=== PATIENT | female | born 1970 | race Caucasian/White ===

== ENCOUNTER → 2024-01-07 09:07 | Outpatient (REF) | payer OTHER, SELFPAY ==
[2024-01-07 10:29] LABS: ALT (SGPT) 24 U/L (0-35); AST (SGOT) 27 U/L (14-36); Albumin 4.8 g/dl (3.5-5.0); Alkaline Phosphatase 82 U/L (38-126); Blood Urea Nitrogen 21 mg/dl (7-17); Calcium 9.6 mg/dl (8.4-10.2); Carbon Dioxide 30 mmol/L (22-30); Chloride 103 mmol/L (98-107); Glucose 85 mg/dl (70-99); HDL Cholesterol 72 mg/dl; LDL Cholesterol, Calculated 122 mg/dl; Potassium 4.7 mmol/L (3.5-5.1); Sodium 140 mmol/L (135-145); Total Cholesterol 203 mg/dl (50-199); Total Protein 7.6 g/dl (6.3-8.2); Triglyceride 46 mg/dl (10-149); Very Low Density Lipoprotein 9 mg/dl (0-30); eGFR > 60.00
[2024-01-07 10:58] LABS: TSH Reflex To Free T4 1.75 uIU/ml (0.47-4.68)
[2024-01-07 12:11] LABS: Glycohemoglobin (HgbA1c) 5.6 % (4.0-5.6)
[2024-01-08 14:07] LABS: Thyroglobulin Antibodies 2.1 IU/mL (0.0-4.0); Thyroid Peroxidase Ab (TPO) 158.4 IU/mL (0.0-9.0)
== END ==
LOC: REG 09:07
PROVIDERS: ATTENDING PHYSICIAN Nurse Practitioner Adult Health
DX: L68.9 Hypertrichosis, unspecified (principal); R07.9 Chest pain, unspecified; E78.2 Mixed hyperlipidemia; E78.3 Hyperchylomicronemia; Z82.49 Family history of ischemic heart disease and other diseases of the circulatory system; R73.01 Impaired fasting glucose
CPT/HCPCS: 36415; 80053; 80061; 83036; 84403; 84443; 86376; 86800

== ENCOUNTER → 2024-02-01 07:38 | Outpatient (REF) | payer SELFPAY | LOC: RAD 07:38 | PROVIDERS: ATTENDING PHYSICIAN Nurse Practitioner Adult Health | DX: R07.9 Chest pain, unspecified (principal); E78.2 Mixed hyperlipidemia; Z83.3 Family history of diabetes mellitus; Z82.49 Family history of ischemic heart disease and other diseases of the circulatory system; R73.01 Impaired fasting glucose | CPT/HCPCS: 75571 ==

== ENCOUNTER → 2024-04-12 07:49 | Outpatient (REF) | payer OTHER, SELFPAY ==
[2024-04-12 09:21] LABS: Cortisol, Random 7.3 ug/dl
== END ==
LOC: REG 07:49
PROVIDERS: ATTENDING PHYSICIAN Nurse Practitioner Adult Health
DX: R79.89 Other specified abnormal findings of blood chemistry (principal)
CPT/HCPCS: 36415; 82533; 84270; 84402; 84403

== ENCOUNTER → 2024-04-27 08:16 | Outpatient (REF) | payer OTHER, SELFPAY | LOC: WDC 08:16 | PROVIDERS: ATTENDING PHYSICIAN Nurse Practitioner Family; FAMILY PHYSICIAN Nurse Practitioner Adult Health | DX: Z12.31 Encounter for screening mammogram for malignant neoplasm of breast (principal) | CPT/HCPCS: 77063; 77067 ==

== ENCOUNTER → 2024-05-10 18:41 | Outpatient (REF) | payer OTHER, SELFPAY | LOC: RAD 18:41 | PROVIDERS: ATTENDING PHYSICIAN Nurse Practitioner Family; FAMILY PHYSICIAN Nurse Practitioner Adult Health | DX: N83.209 Unspecified ovarian cyst, unspecified side (principal) | CPT/HCPCS: 76830; 76856 ==

== ENCOUNTER → 2024-05-11 07:45 | Outpatient (REF) | payer OTHER, SELFPAY ==
[2024-05-11 09:15] LABS: Glucose 85 mg/dl (70-99); HDL Cholesterol 60 mg/dl; LDL Cholesterol, Calculated 115 mg/dl; Total Cholesterol 189 mg/dl (50-199); Triglyceride 70 mg/dl (10-149); Very Low Density Lipoprotein 14 mg/dl (0-30)
[2024-05-11 09:54] LABS: Glycohemoglobin (HgbA1c) 5.2 % (4.0-5.6)
[2024-05-11 11:52] LABS: CA 125 7.3 U/mL (0-35)
[2024-05-12 23:28] LABS: DHEA Sulfate 100 ug/dL (35-256)
== END ==
LOC: REG 07:45
PROVIDERS: ATTENDING PHYSICIAN Radiology Diagnostic Radiology; FAMILY PHYSICIAN Nurse Practitioner Adult Health; REFERRING PHYSICIAN Nurse Practitioner Family
DX: L68.9 Hypertrichosis, unspecified (principal); R79.89 Other specified abnormal findings of blood chemistry
CPT/HCPCS: 36415; 80061; 82627; 82947; 83036; 86304

== ENCOUNTER → 2024-05-20 09:09 | Outpatient (REF) | payer OTHER, SELFPAY | LOC: MRI 3T 09:09 | PROVIDERS: ATTENDING PHYSICIAN Obstetrics & Gynecology; FAMILY PHYSICIAN Nurse Practitioner Adult Health | DX: N83.9 Noninflammatory disorder of ovary, fallopian tube and broad ligament, unspecified (principal) | CPT/HCPCS: 72197; A9575 ==

== ENCOUNTER → 2024-05-23 07:22 | Outpatient (REF) | payer OTHER, SELFPAY ==
[2024-05-23 11:42] LABS: FSH 57.6 mIU/ml; Prolactin 18.7 ng/ml (3.0-18.6)
[2024-05-23 11:55] LABS: CEA 1.25 ng/ml
[2024-05-23 11:57] LABS: Estradiol 40.4 pg/ml
[2024-05-24 19:21] LABS: CA 19-9 3 U/mL (<=35)
== END ==
LOC: REG 07:22
PROVIDERS: ATTENDING PHYSICIAN Radiology Diagnostic Radiology; FAMILY PHYSICIAN Nurse Practitioner Adult Health; OTHER PHYSICIAN Nurse Practitioner Family; REFERRING PHYSICIAN Obstetrics & Gynecology Gynecologic Oncology
DX: R79.89 Other specified abnormal findings of blood chemistry (principal); N83.202 Unspecified ovarian cyst, left side
CPT/HCPCS: 36415; 82378; 82670; 83001; 83002; 84146; 86301

== ENCOUNTER → 2024-05-30 10:19 | Outpatient (REF) | payer OTHER, SELFPAY | LOC: RAD 10:19 | PROVIDERS: ATTENDING PHYSICIAN Obstetrics & Gynecology Gynecologic Oncology; FAMILY PHYSICIAN Nurse Practitioner Adult Health | DX: C56.2 Malignant neoplasm of left ovary (principal); R19.04 Left lower quadrant abdominal swelling, mass and lump; R97.8 Other abnormal tumor markers | CPT/HCPCS: 71260; 74177; Q9967 ==

== ENCOUNTER 2024-06-01 06:29 | Day surgery (SDC) | payer OTHER, SELFPAY ==
[2024-05-29 08:42] VITALS: BMI 33.0
[2024-05-29 09:35] LABS: % Basophils 0.7 % (0-2); % Eosinophils 2.1 % (0-6); % Immature Granulocytes 0.2 % (0-0.5); % Lymphocytes 40.6 % (20.5-51.1); % Monocytes 9.1 % (1.7-9.3); % Neutrophils 47.3 % (42.2-75.2); Absolute Eosinophils 0.1 10^3/uL (0-0.7); Absolute Lymphocytes 1.7 10^3/uL (1.2-3.4); Absolute Monocytes 0.4 10^3/uL (0.1-0.6); Hematocrit 41.1 % (37.0-47.0); Hemoglobin 13.8 g/dL (12.0-16.0); Mean Corp Hgb Conc. 33.6 g/dL (33.0-37.0); Mean Corpuscular Hgb 29.1 pg (27.0-31.0); Mean Corpuscular Volume 86.5 fL (81.0-99.0); Mean Platelet Volume 9.9 fL (7.4-10.4); Nucleated Red Blood Cells % 0 %; Platelet Count 226 10^3/uL (130-400); Red Blood Cell Count 4.75 10^6/uL (4.20-5.40); Red Cell Dist. Width 12.1 % (11.5-14.5); White Blood Cell Count 4.2 10^3/uL (4.8-10.8)
[2024-05-29 09:42] LABS: ALT (SGPT) 23 U/L (0-35); AST (SGOT) 25 U/L (14-36); Albumin 4.4 g/dl (3.5-5.0); Alkaline Phosphatase 64 U/L (38-126); Blood Urea Nitrogen 27 mg/dl (7-17); Carbon Dioxide 25 mmol/L (22-30); Chloride 105 mmol/L (98-107); Estimated Creatinine Clearance 99 ml/min; Glucose 83 mg/dl (70-99); Potassium 4.7 mmol/L (3.5-5.1); Sodium 142 mmol/L (135-145); Total Bilirubin 0.7 mg/dl (0.2-1.3); Total Protein 7.2 g/dl (6.3-8.2); eGFR > 60.00
[2024-06-01] VITALS (10 sets, daily range): BP systolic 99–137; BP diastolic 56–82; BMI 33.0
[2024-06-01] MEDS: NEURONTIN 300 MG PO (12:52)
[2024-06-01] MEDS: HEPARIN 5000 UNITS SC (12:53)
[2024-06-01] MEDS: TYLENOL 1000 MG PO (12:53)
[2024-06-01] MEDS: MOBIC 15 MG PO (13:05)
[2024-06-01] MEDS: DEMEROL 12.5 MG IV (17:08)
[2024-06-01] MEDS: DILAUDID 0.25 MG IV (17:16)
--- NOTE | 2024-06-01 17:22 | OR.RPT ---
Operative Report
Operative Report
Date of procedure: June 01, 2024
preoperative diagnosis: Elevated testosterone level, left ovarian mass, history of cervix dysplasia
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
Anesthesia: General Endotracheal intubation
Procedure:
Robotic assisted total laparoscopic hysterectomy, bilateral salpingo-oophorectomy, pelvic washings, infracolic omentectomy
Tap block
Surgeon: Luke Hamm MD
Assist: GEO Catalan
Estimated blood loss 50 cc
Urine output: 400 cc
Complications: None
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 She had a prior history of cone biopsy for cervical dysplasia. Given her menopausal disease
status decision was made to proceed with removal of uterus cervix bilateral tubes and ovaries. Upon arrival to the operating room she was placed in supine position, general anesthesia was administered, she was intubated without any difficulty, she
was placed in lithotomy position using yellowfin stirrups and her arms were wrapped in foam and protected and later along her sides. She was prepped on the abdomen and perineum and vagina and she was draped. She had timeout procedure and received
appropriate IV antibiotics and DVT prophylaxis including heparin subcutaneous injection. Keller catheter was placed in the bladder for drainage under sterile conditions. Anterior lip of the cervix was grasped with single-tooth tenaculum. The
endocervical canal was dilated gradually up to 23 Hegar dilator. The uterus sounded to 7 cm. Uterine manipulator business education professor type with 3.0 cm RAYMON ring was placed around the cervix. Vaginal cuff occluder was insufflated. Attention was turned
abdominally.
Veress needle was inserted just below the right subcostal margin and insufflation with CO2 gas was performed up to pressure of 15 mmHg. 8 mm XI robotic port was inserted approximately 20 cm cephalad to symphysis pubis into the peritoneal cavity.
Visualization of the upper abdomen reveals spleen stomach omentum right and left diaphragm and liver to be within normal limits. I went ahead and placed 8 mm robotic ports in the right and left upper and lateral aspects of the abdomen.
Next we performed a tap block, mixture of ropivacaine and Decadron was injected as a tap block 2 fingerbreadths below the subcostal margin on right and left sides as well as lateral mid abdomen right and left sides. This was done under direct
visualization.
Once this was completed the patient was placed in Trendelenburg 28 degrees and robotic system was docked. Pelvic washings were collected and submitted to pathology. The uterus appeared to be normal, anterior and posterior cul-de-sac were without
any abnormalities, the right tube and ovary were normal. There was a solid lesion approximately 2 cm involving the left ovary and the left fallopian tube was normal. I open right and left pelvic sidewalls, we identified the round ligaments after
exploration of the retroperitoneum and these were sealed and divided the course of the ureter was identified bilaterally, infundibulopelvic ligaments were identified bilaterally and they were isolated sealed 3 times with vessel sealer and divided.
Bladder flap was developed some scarring was present in the vesicouterine space, bladder was taken down below the level of the cervix. Uterine arteries were skeletonized sealed 3 times and divided. Uterosacral ligaments were sealed and divided.
Paracervical tissue as well as uterosacral ligaments were sealed and divided. Circumferential incision was made over the RAYMON ring until the specimen was completely detached. Uterus cervix bilateral tubes and ovaries were removed through the vagina
and submitted to pathology for frozen section.
Next omentum was brought into view, a series of omental vessels were sealed and divided. Vessel sealer, a generous portion of the infracolic omentum was completely excised and submitted to pathology after it was removed through the vagina. The
remainder of the abdomen was normal.
Frozen section of the left ovary reveals likely fibroma involving left ovary. No obvious overt malignancy is seen. Further assessment will be deferred to final pathology. Given this information I did not perform any additional formal staging.
Good hemostasis was established. I used a 0 Vicryl suture ligature to close the vaginal cuff in both apices and establish good hemostasis and also incorporated uterosacral ligaments for support. V-Loc suture was used to close the vaginal cuff
otherwise in a bidirectional fashion. A [id number]-[id number] suture of 3-0 Vicryl was placed over the left uterine vessels for improved hemostasis. We examined all operative sites and good hemostasis had been established. We irrigated the pelvis
copiously and then removed all instruments. Pneumoperitoneum was released. All skin incisions were closed with 4-0 Monocryl in a subcuticular fashion. The vagina was inspected and there was no lacerations or bleeding. Keller catheter was
removed. Patient was awakened extubated and returned back to recovery room stable awake and extubated condition. Counts of laps instruments and needle was correct x 2. I was present and scrubbed for entire procedure as dictated above. Please
note that this case was much more challenging and difficult then routine hysterectomy because of the number of prior procedures that the patient has had causing extensive adhesions in the anterior cul-de-sac and necessitating extensive adhesiolysis.
Disposition: To PACU stable awake extubated
[2024-06-01] MEDS: TYLENOL 650 MG PO (19:33)
== END 2024-06-01 20:05 | disposition home or self-care (01) ==
LOC: SDS 06:29
PROVIDERS: ATTENDING PHYSICIAN Obstetrics & Gynecology Gynecologic Oncology; FAMILY PHYSICIAN Nurse Practitioner Adult Health; OTHER PHYSICIAN Obstetrics & Gynecology
DX: D27.1 Benign neoplasm of left ovary (principal); D25.9 Leiomyoma of uterus, unspecified; N80.03 Adenomyosis of the uterus; N83.9 Noninflammatory disorder of ovary, fallopian tube and broad ligament, unspecified; Z87.410 Personal history of cervical dysplasia
CPT/HCPCS: 58571; 49255; 88307; 88332; 36415; 80053; 85025; 86850; 86900; 86901; 88112; 88313; 88331; 88341; 88342; 93005

== ENCOUNTER → 2024-07-14 10:05 | Outpatient (REF) | payer OTHER, SELFPAY ==
[2024-07-14 11:47] LABS: Prolactin 13.3 ng/ml (3.0-18.6)
== END ==
LOC: REG 10:05
PROVIDERS: ATTENDING PHYSICIAN Nurse Practitioner Adult Health; OTHER PHYSICIAN Internal Medicine Endocrinology, Diabetes & Metabolism; OTHER PHYSICIAN Obstetrics & Gynecology; OTHER PHYSICIAN Obstetrics & Gynecology Gynecologic Oncology; REFERRING PHYSICIAN Radiology Diagnostic Radiology
DX: R79.89 Other specified abnormal findings of blood chemistry (principal)
CPT/HCPCS: 36415; 84146; 84270; 84402; 84403

== ENCOUNTER → 2024-07-24 07:02 | Outpatient (REF) | payer OTHER, SELFPAY ==
[2024-07-24 14:26] LABS: FSH 58.5 mIU/ml; Progesterone 0.57 ng/ml
[2024-07-24 14:42] LABS: Estradiol 32.2 pg/ml
[2024-07-24 15:39] LABS: Cortisol, Random 10.8 ug/dl
[2024-07-26 03:30] LABS: Adrenocorticotropic Hormone 17.4 pg/mL (7.2-63.3)
[2024-07-26 03:34] LABS: IGF-1 Z Score Calculation 0.1; Insulin-like Growth Factor I 122 ng/mL (49-234)
[2024-07-26 04:12] LABS: DHEA Sulfate 94 ug/dL (19-205)
== END ==
LOC: REG 07:02
PROVIDERS: ATTENDING PHYSICIAN Nurse Practitioner Family
DX: R79.89 Other specified abnormal findings of blood chemistry (principal)
CPT/HCPCS: 36415; 82024; 82533; 82627; 82670; 83001; 83002; 83498; 84144; 84270; 84305; 84402; 84403

== ENCOUNTER → 2024-08-20 09:20 | Outpatient (REF) | payer OTHER, SELFPAY ==
[2024-08-22 18:18] LABS: Free Testosterone 282.8 pg/mL (0.6-3.8); Sex Hormone Binding Globulin 33 nmol/L (17-125); Total Testosterone,Female/Chil 1260 ng/dL (9-55)
== END ==
LOC: REG 09:20
PROVIDERS: ATTENDING PHYSICIAN Obstetrics & Gynecology Gynecologic Oncology; FAMILY PHYSICIAN Nurse Practitioner Adult Health
DX: R19.04 Left lower quadrant abdominal swelling, mass and lump (principal); R97.8 Other abnormal tumor markers; D27.1 Benign neoplasm of left ovary
CPT/HCPCS: 36415; 84270; 84402; 84403

== ENCOUNTER → 2024-08-23 17:46 | Outpatient (REF) | payer OTHER, SELFPAY | LOC: MRI 17:46 | PROVIDERS: ATTENDING PHYSICIAN Obstetrics & Gynecology Gynecologic Oncology; FAMILY PHYSICIAN Nurse Practitioner Adult Health | DX: R19.04 Left lower quadrant abdominal swelling, mass and lump (principal); R97.8 Other abnormal tumor markers; D27.1 Benign neoplasm of left ovary | CPT/HCPCS: 74183; A9575 ==

== ENCOUNTER → 2024-09-03 07:10 | Outpatient (REF) | payer OTHER, SELFPAY ==
[2024-09-03 08:32] LABS: FSH 41.7 mIU/ml; Prolactin 13.1 ng/ml (3.0-18.6)
[2024-09-03 08:46] LABS: TSH Reflex To Free T4 1.73 uIU/ml (0.47-4.68)
[2024-09-03 08:48] LABS: Cortisol, Random 1.1 ug/dl
[2024-09-03 11:15] LABS: ALT (SGPT) 26 U/L (0-35); AST (SGOT) 23 U/L (14-36); Albumin 4.6 g/dl (3.5-5.0); Alkaline Phosphatase 86 U/L (38-126); Blood Urea Nitrogen 21 mg/dl (7-17); Calcium 9.5 mg/dl (8.4-10.2); Carbon Dioxide 25 mmol/L (22-30); Chloride 103 mmol/L (98-107); Glucose 109 mg/dl (70-99); Potassium 4.7 mmol/L (3.5-5.1); Sodium 136 mmol/L (135-145); Total Bilirubin 0.4 mg/dl (0.2-1.3); Total Protein 7.4 g/dl (6.3-8.2); eGFR > 60.00
[2024-09-05 01:47] LABS: IGF-1 Z Score Calculation 0.5; Insulin-like Growth Factor I 140 ng/mL (49-234)
== END ==
LOC: REG 07:10
PROVIDERS: ATTENDING PHYSICIAN Internal Medicine Endocrinology, Diabetes & Metabolism; FAMILY PHYSICIAN Nurse Practitioner Adult Health
DX: R79.89 Other specified abnormal findings of blood chemistry (principal)
CPT/HCPCS: 36415; 80053; 82157; 82533; 83001; 83002; 84146; 84305; 84403; 84443

== ENCOUNTER → 2024-12-21 10:55 | Outpatient (REF) | payer OTHER, SELFPAY ==
[2024-12-21 11:50] LABS: % Basophils 0.6 % (0-2); % Eosinophils 1.6 % (0-6); % Immature Granulocytes 0.2 % (0-0.5); % Lymphocytes 33.9 % (20.5-51.1); % Neutrophils 54.7 % (42.2-75.2); Absolute Eosinophils 0.1 10^3/uL (0-0.7); Absolute Lymphocytes 1.7 10^3/uL (1.2-3.4); Absolute Monocytes 0.4 10^3/uL (0.1-0.6); Absolute Neutrophils 2.7 10^3/uL (1.4-6.5); Hematocrit 42.3 % (37.0-47.0); Hemoglobin 14.4 g/dL (12.0-16.0); Mean Corpuscular Hgb 29.4 pg (27.0-31.0); Mean Corpuscular Volume 86.3 fL (81.0-99.0); Mean Platelet Volume 9.5 fL (7.4-10.4); Nucleated Red Blood Cells % 0 %; Platelet Count 210 10^3/uL (130-400); Red Cell Dist. Width 12.7 % (11.5-14.5); White Blood Cell Count 4.9 10^3/uL (4.8-10.8)
[2024-12-21 12:20] LABS: ALT (SGPT) 38 U/L (0-35); AST (SGOT) 27 U/L (14-36); Albumin 4.9 g/dl (3.5-5.0); Alkaline Phosphatase 77 U/L (38-126); Blood Urea Nitrogen 16 mg/dl (7-17); Calcium 9.4 mg/dl (8.4-10.2); Carbon Dioxide 27 mmol/L (22-30); Chloride 106 mmol/L (98-107); Glucose 87 mg/dl (70-99); HDL Cholesterol 65 mg/dl; LDL Cholesterol, Calculated 128 mg/dl; Potassium 4.4 mmol/L (3.5-5.1); Sodium 141 mmol/L (135-145); Total Bilirubin 1.1 mg/dl (0.2-1.3); Total Cholesterol 206 mg/dl (50-199); Total Protein 7.7 g/dl (6.3-8.2); Triglyceride 69 mg/dl (10-149); Very Low Density Lipoprotein 13 mg/dl (0-30); eGFR > 60.00
[2024-12-21 12:21] LABS: Glycohemoglobin (HgbA1c) 5.4 % (4.0-5.6)
[2024-12-21 12:35] LABS: FSH 62.9 mIU/ml
[2024-12-21 12:50] LABS: Estradiol 23.7 pg/ml
== END ==
LOC: REG 10:55
PROVIDERS: ATTENDING PHYSICIAN Radiology Diagnostic Radiology; FAMILY PHYSICIAN Nurse Practitioner Adult Health; OTHER PHYSICIAN Internal Medicine Endocrinology, Diabetes & Metabolism
DX: E28.1 Androgen excess (principal); R63.5 Abnormal weight gain
CPT/HCPCS: 36415; 80053; 80061; 82670; 83001; 83002; 83036; 84270; 84402; 84403; 85025; 88230; 88262

== ENCOUNTER → 2025-06-26 13:15 | Outpatient (REF) | payer OTHER, SELFPAY | LOC: MRI 13:15 | PROVIDERS: ATTENDING PHYSICIAN Orthopaedic Surgery; FAMILY PHYSICIAN Internal Medicine | DX: M25.571 Pain in right ankle and joints of right foot (principal) | CPT/HCPCS: 73721 ==